=== PATIENT | male | born 1995 | race Hispanic/Latino ===

== ENCOUNTER 2020-02-20 23:44 | Inpatient (IN) | payer SELFPAY ==
[~2020-02-20] VITALS: Ht 175.3 cm; Wt 108.9 kg
[2020-02-21] VITALS (31 sets, daily range): BP systolic 102–153; BP diastolic 56–92
[2020-02-21 00:16] LABS: APPEARANCE,URINE Clear (CLEAR); BILIRUBIN,URINE Negative (NEGATIVE); COLOR,URINE Yellow (YELLOW); GLUCOSE, URINE (UA) 500 mg/dL (NEGATIVE); KETONES,URINE Negative (NEGATIVE); LEUKOCYTE ESTERASE ,URINE Trace (NEGATIVE); NITRATE,URINE Negative (NEGATIVE); OCCULT BLOOD,URINE Moderate (NEGATIVE); PH,URINE 5.5 (5.0-8.0); PROTEIN,URINE Trace mg/dL (NEGATIVE); UROBILINOGEN,URINE 0.2 mg/dL (0.2-1.0)
[2020-02-21 00:25] LABS: BASOPHILS % (AUTO) 0.3 % (0.0-5.0); EOSINOPHILS % (AUTO) 0.1 % (0.0-8.0); HEMATOCRIT 46.4 % (42-54); LYMPHOCYTES % (AUTO) 6.6 % (21.0-51.0); MEAN CORPUSCULAR HEMOGLOBIN 29.3 pg (27.0-33.0); MEAN CORPUSCULAR HGB CONC 34.5 g/dL (32.0-36.0); MEAN CORPUSCULAR VOLUME 84.8 fL (79-99); MONOCYTES % (AUTO) 6.7 % (3.0-13.0); NEUTROPHILS % (AUTO) 85.6 % (40.0-77.0); PLATELET COUNT (AUTO) 305 K/uL (130-400); RED BLOOD CELL COUNT(AUTO) 5.47 MIL/uL (4.50-6.20); WHITE BLOOD COUNT (AUTO) 25.9 K/uL (4.8-10.8)
[2020-02-21 00:26] LABS: BACTERIA,URINE Rare /HPF (None Seen); MUCUS,URINE Rare LPF (None Seen); SQUAMOUS EPITHELIAL CELL,UR 0-2 /HPF (0-2)
[2020-02-21 00:28] LABS: POTASSIUM 3.9 mmol/L (3.5-5.1)
[2020-02-21] MEDS ORDERED: SODIUM CHLORIDE 0.9% 1000ML 1,000 ML IV ONE ×2 (00:38→03:49)
[2020-02-21] MEDS ORDERED: ONDANSETRON HCL 4 MG/2 ML VIAL ONE ×2 (01:17→16:09)
[2020-02-21] MEDS ORDERED: MORPHINE SULFATE 4 MG/1ML SYG ONE ×4 (01:21→13:15)
[2020-02-21] MEDS ORDERED: METOCLOPRAMIDE 10 MG/2 ML VIAL ONE (01:21)
[2020-02-21] MEDS ORDERED: IOHEXOL-350 75 ML VIAL IV ONE (01:51)
[2020-02-21] MEDS ORDERED: ZOSYN 3.375GM+NS 50ML 50 ML IV ONE ×3 (03:49→19:42)
[2020-02-21] MEDS ORDERED: LACTATED RINGERS 1000ML 1,000 ML IV ONE (04:15)
[2020-02-21] MEDS ORDERED: KETOROLAC TROMETHAMINE 30MG/ML ONE ×2 (08:30→15:36)
[2020-02-21 10:31] LABS: AMPHET/METH SCREEN,URINE NEGATIVE (NEGATIVE); BARBITURATE SCREEN, URINE NEGATIVE (NEGATIVE); BENZODIAZEPINES SCREEN,URINE NEGATIVE (NEGATIVE); CANNABINOID SCREEN,URINE NEGATIVE (NEGATIVE); COCAINE SCREEN,URINE NEGATIVE (NEGATIVE); OPIATE SCREEN,URINE NEGATIVE (NEGATIVE); PHENCYCLIDINE SCREEN,URINE NEGATIVE (NEGATIVE)
[2020-02-21] MEDS ORDERED: HYDROMORPHONE 1 MG/1 ML AMP ONE (14:01)
[2020-02-21] MEDS ORDERED: BUPIVACAINE/PF 0.5% 30ML VIAL ONE (15:14)
[2020-02-21] MEDS ORDERED: LIDOCAINE PF 2% 5ML ABBOJECT ONE (16:09)
[2020-02-21] MEDS ORDERED: DEXAMETHASONE SOD PHOSPHATE 10MG/ML 1ML VIAL ONE (16:09)
[2020-02-21] MEDS ORDERED: PROPOFOL 10 MG/ML 20ML VIAL IV ONE ×2 (16:09→16:37)
[2020-02-21] MEDS ORDERED: MIDAZOLAM HCL 1 MG/ML 2ML VIAL ONE (16:09)
[2020-02-21] MEDS ORDERED: FENTANYL CITRATE PF 50 MCG/1 ML 2ML VIAL ONE (16:10)
[2020-02-21] MEDS ORDERED: ROCURONIUM 10MG/1ML SYR 10 MG/ML ML ONE ×2 (16:10→16:37)
[2020-02-21] MEDS ORDERED: SUCCINYLCHOLINE CHLORIDE 20 MG/ML 10 ML VIAL ONE (16:10)
[2020-02-21] MEDS ORDERED: GLYCOPYRROLATE 1 MG/5 ML SYRINGE ONE (17:01)
[2020-02-21] MEDS ORDERED: NEOSTIGMINE 5MG/5ML SYR IV ONE (17:02)
[2020-02-21] MEDS ORDERED: ONDANSETRON HCL 4 MG/2 ML VIAL IVP PRN (17:15)
[2020-02-21] MEDS ORDERED: RACEPINEPHRINE HCL 2.25% 0.5 ML NEB SOLN ONE (17:17)
[2020-02-21] MEDS ORDERED: PHARMACY COMMUNICATION MISC SCH (18:15)
[2020-02-21] MEDS ORDERED: ACETAMINOPHEN 325 MG TAB ONE (18:21)
[2020-02-21] MEDS ORDERED: MEPERIDINE-PF 25 MG/ML SYG ONE (18:48)
--- NOTE | 2020-02-21 19:40 | NUR ---
patient arrived from [facility] with a nonrebreather 10 liters and tachycardia in the 130's. patient's blood pressure is stable and temperature normal. patient has no pain. patient is alert and oriented times 3 and urinating in the urinal. he has a ivonne drain on the right lower abdomen, but secured towards the left lower abdomen. patient starts having pain at midnight. morphine 4mg iv given and patient seems comfortable. will continue to monitor
[2020-02-21] MEDS: ZOSYN 3.375GM+NS 50ML 50 ML IV SCH (21:00)
[2020-02-21] MEDS: D5W-1/2 NS/20MEQ KCL 1,000 ML IV SCH (21:31)
[2020-02-22] VITALS (8 sets, daily range): BP systolic 107–137; BP diastolic 64–86
[2020-02-22] MEDS: MORPHINE SULFATE 4 MG/1ML SYG IV PRN ×2 (00:32→07:58)
[2020-02-22] MEDS: ACETAMINOPHEN 325 MG TAB PO PRN ×2 (01:18→20:07)
[2020-02-22] MEDS: ZOSYN 3.375GM+NS 50ML 50 ML IV SCH ×3 (03:49→19:25)
[2020-02-22 06:39] LABS: HEMATOCRIT 43.3 % (42-54); MEAN CORPUSCULAR HEMOGLOBIN 28.5 pg (27.0-33.0); MEAN CORPUSCULAR HGB CONC 32.1 g/dL (32.0-36.0); MEAN CORPUSCULAR VOLUME 88.9 fL (79-99); RED BLOOD CELL COUNT(AUTO) 4.87 MIL/uL (4.50-6.20); RED CELL DISTRIBUTION WIDTH 12.7 % (11.0-15.5); WHITE BLOOD COUNT (AUTO) 17.7 K/uL (4.8-10.8)
[2020-02-22] MEDS: D5W-1/2 NS/20MEQ KCL 1,000 ML IV SCH ×3 (06:42→20:53)
[2020-02-22 06:48] LABS: POTASSIUM 3.8 mmol/L (3.5-5.1)
--- NOTE | 2020-02-22 07:30 | NUR ---
ASSESSMENT NOTE PT AAOX3 IN BED C/O PAIN TO LOWER ABD 7 OUT OF 10.
--- NOTE | 2020-02-22 08:00 | NUR ---
MORPHINE PT GIVEN MORPHINE FOR PAIN 7 OUT OF 10 TO LOWER ABD. WILL CONTINUE TO MONITOR.
--- NOTE | 2020-02-22 14:30 | NUR ---
PAIN MED PT C/O PAIN TO LOWER ABD 6-10 WILL GIVE 30 MG IVP OF TORADOL.
[2020-02-22] MEDS: KETOROLAC TROMETHAMINE 30MG/ML IV PRN ×2 (14:40→20:39)
--- NOTE | 2020-02-22 16:00 | NUR ---
PAIN MED PT STATES, HE HAD SOME RELIEF WITH TORADOL IT AT 2 OUT 10.
[2020-02-22] MEDS ORDERED: LACTULOSE 20 GM/30 ML UDCUP ONE (18:34)
[2020-02-22] MEDS: LACTULOSE 20 GM/30 ML UDCUP PO SCH (19:25)
--- NOTE | 2020-02-22 20:40 | NUR ---
called doctor manny about patient's fever of 101.3 and 103 at 20:38. i already applied cold packs to the patient and gave acetaminophen 650 mg at 20:00 he ordered a cooling blanket and another acetaminophen 650 mg.
--- NOTE | 2020-02-22 21:00 | NUR ---
called 2nd floor icu, day patient icu, ER, and notified mix house tender about patient's need of a cooling blanket. there are no cooling blankets available. ice packs applied to the patient and patient sent to have a cold shower. temperature dropped to 98.2 degrees farenheit.
[2020-02-22] MEDS ORDERED: ACETAMINOPHEN 325 MG TAB PO ONE (22:00)
[2020-02-23] MEDS: ZOSYN 3.375GM+NS 50ML 50 ML IV SCH ×3 (03:25→20:10)
[2020-02-23] MEDS: KETOROLAC TROMETHAMINE 30MG/ML IV PRN ×3 (03:31→23:31)
[2020-02-23] MEDS: ACETAMINOPHEN 325 MG TAB PO PRN ×2 (04:01→13:48)
[2020-02-23 04:03] VITALS: BP 137/91
[2020-02-23 08:34] VITALS: BP 133/88
--- NOTE | 2020-02-23 08:48 | NUR ---
PAIN MED APPLIANCE SERVICE REPRESENTATIVE GAVE 4 MG OF MORPHINE 0645 AM PT ASK FOR ANOTHER DOSE. I EXPLAINED TO PATIENT IT'S TO SOON FOR MED TO BE GIVEN, MED DUE AT 0945 AM. THEN WANTED TORADOL IT'S ALSO TO SOON FOR MED TO BE GIVEN IT'S Q 6HRS. NEXT DOSE DUE 0930 AM 30 MG.
[2020-02-23 08:50] LABS: HEMATOCRIT 40.8 % (42-54); MEAN CORPUSCULAR HEMOGLOBIN 29.1 pg (27.0-33.0); MEAN CORPUSCULAR HGB CONC 33.1 g/dL (32.0-36.0); MEAN CORPUSCULAR VOLUME 87.9 fL (79-99); PLATELET COUNT (AUTO) 217 K/uL (130-400); RED BLOOD CELL COUNT(AUTO) 4.64 MIL/uL (4.50-6.20); RED CELL DISTRIBUTION WIDTH 12.8 % (11.0-15.5); WHITE BLOOD COUNT (AUTO) 15.1 K/uL (4.8-10.8)
[2020-02-23 09:14] LABS: POTASSIUM 3.8 mmol/L (3.5-5.1)
[2020-02-23] MEDS: LACTULOSE 20 GM/30 ML UDCUP PO SCH ×3 (09:16→20:18)
[2020-02-23 09:37] LABS: BASOPHILS % (MANUAL) 1 % (0-2); LYMPHOCYTES % (MANUAL) 8 % (22-44); MAN.DIFF COMMENT-IMPRESSION MANUAL DIFFERENTIAL; MONOCYTES % (MANUAL) 9 % (2-9); PLATELET MORPHOLOGY COMMENT ADEQUATE; SEGMENTED NEUTROPHILS % 82 % (40-70)
[2020-02-23 11:54] VITALS: BP 124/72
[2020-02-23] MEDS: D5W-1/2 NS/20MEQ KCL 1,000 ML IV SCH ×4 (13:57→23:06)
[2020-02-23 15:58] VITALS: BP 126/75
--- NOTE | 2020-02-23 16:25 | NUR ---
DCP IA done by Olu Ribeiro RN. As per Olu spoke to pt's father on facesheet [employer] . Pt is independent prior to admission, lives at home w/girlfriend. Denies any equipments/services. Feels safe to go back home, still drives and works, girlfriend and father able to assist with transportation and needs. CM to continue to follow up. Dc plan to home once stable. Pt is a selfpay, [facility] assisting, given [employer] resources packet. Addendum: 02/23/20 at 1627 by CLARENCE HARRIS LVN Amended: Links added.
[2020-02-23 19:37] VITALS: BP 138/73
--- NOTE | 2020-02-23 20:20 | NUR ---
MEDS SHIFT ASSESSMENT DONE, PLEASE REFER TO CHART. DUE MEDS ADMINISTERED, TOLERATED WELL. PT REQUESTED TO WALK OUTSIDE THE ROOM. ALLOWED PT TO AMBULATE IN THE HALLWAY WEARING A MASK. PT TOLERATED ACTIVITY WELL. Addendum: 02/23/20 at 2251 by JG MAURER RN RN Amended: Links added.
--- NOTE | 2020-02-23 23:30 | NUR ---
PAIN PT WAS ALREADY MOVED TO ROOM 316. THERMOSTAT IN PREVIOUS ROOM 317 IS NOT WORKING AND ROOM IS TOO COLD. WORK ORDER PLACED FOR ROOM 317 TO BE FIXED BY CAMPUS AMBASSADOR. PT CLAIMS OF HEADACHE.REQUESTED COLD COMPRESS TO FOREHEAD, PROVIDED. MEDICATED WITH TORADOL IV. KEPT COMFORTABLE IN BED WITH HOB ELEVATED. WILL RE-ASSESS PT. Addendum: 02/23/20 at 2350 by JG MAURER RN RN Amended: Links added.
[2020-02-23 23:44] VITALS: BP 131/93
--- NOTE | 2020-02-24 01:55 | NUR ---
ROUNDS PT RESTING WELL, FAIRLY ASLEEP. NO DISTRESS NOTED. KEPT UNDISTURBED FOR NOW. CALL LIGHT WITHIN REACH. WILL MONITOR PT.
[2020-02-24 03:59] VITALS: BP 131/87
[2020-02-24] MEDS: D5W-1/2 NS/20MEQ KCL 1,000 ML IV SCH ×3 (04:04→12:53)
[2020-02-24] MEDS: ZOSYN 3.375GM+NS 50ML 50 ML IV SCH ×3 (04:32→20:45)
--- NOTE | 2020-02-24 04:37 | NUR ---
MEDS PAYROLL CLERK AWAKENED PT TO DRAW BLOOD. PT DENIES ANY CONCERNS AT THIS TIME. DUE MEDS HUNG. KEPT RESTED AND COMFORTABLE. FOR MORE CARE.
[2020-02-24 04:39] LABS: BASOPHILS % (AUTO) 0.3 % (0.0-5.0); EOSINOPHILS % (AUTO) 1.5 % (0.0-8.0); HEMATOCRIT 38.4 % (42-54); LYMPHOCYTES % (AUTO) 15.8 % (21.0-51.0); MEAN CORPUSCULAR HEMOGLOBIN 28.3 pg (27.0-33.0); MEAN CORPUSCULAR HGB CONC 32.3 g/dL (32.0-36.0); MEAN CORPUSCULAR VOLUME 87.7 fL (79-99); MONOCYTES % (AUTO) 9.1 % (3.0-13.0); NEUTROPHILS % (AUTO) 72.6 % (40.0-77.0); PLATELET COUNT (AUTO) 248 K/uL (130-400); RED BLOOD CELL COUNT(AUTO) 4.38 MIL/uL (4.50-6.20); RED CELL DISTRIBUTION WIDTH 12.6 % (11.0-15.5); WHITE BLOOD COUNT (AUTO) 11.3 K/uL (4.8-10.8)
[2020-02-24 07:30] VITALS: BP 144/91
--- NOTE | 2020-02-24 08:00 | NUR ---
SITTING IN CHAIR, NO C/O. DENIES PAIN TO SURGICAL SITE.HAS BEEN TOLERATING HEART HEALTHY DIET WELL.
[2020-02-24] MEDS: LACTULOSE 20 GM/30 ML UDCUP PO SCH ×2 (09:00→17:45)
--- NOTE | 2020-02-24 10:30 | NUR ---
SM. SURG. WOUND CLEANED, CLOSED, [address], BAND AID APPLIED.
[2020-02-24 11:00] VITALS: BP 125/75
--- NOTE | 2020-02-24 11:17 | NUR ---
ANSWERED A CALL FROM A VERY UPSET (ANGRY) MOTHER TELLING ME TO SEND HER SON HOME, THAT WE HAD BEEN DELAYING HIS STAY HERE AND THAT IT WAS ACTUALLY OUR FAULT HIS STAY WAS DELAYED DUE TO THE FACT HE HAD TO WAIT 16 HRS. BEFORE HE WAS SEEN BY THE SURGEON.
--- NOTE | 2020-02-24 12:30 | NUR ---
OJ HARRIS IN TO SEE PT. ALSO SPOKE TO PTS MOM. EXPLAINED WHY IT WAS STILL NECESSARY FOR PT TO REMAIN IN HOSP. FOR ABX. THERAPY.
--- NOTE | 2020-02-24 15:25 | NUR ---
NEW IV START, LEFT HAND 22G. ZOSYN INFUSING NOW.
[2020-02-24 16:00] VITALS: BP 127/80
[2020-02-24 20:20] VITALS: BP 134/77
--- NOTE | 2020-02-24 20:45 | NUR ---
MEDS SHIFT ASSESSMENT DONE, PLEASE REFER TO CHART. DUE MEDS ADMINISTERED, TOLERATED WELL. CALL LIGHT WITHIN REACH. WILL MONITOR PT. Addendum: 02/24/20 at 2320 by JG MAURER RN RN Amended: Links added.
[2020-02-25 00:24] VITALS: BP 123/80
--- NOTE | 2020-02-25 02:00 | NUR ---
ROUNDS PT RESTING WELL, FAIRLY ASLEEP. NO DISTRESS NOTED. KEPT RESTED AND COMFORTABLE. CALL LIGHT WITHIN REACH. WILL CONTINUE TO MONITOR.
[2020-02-25 04:24] VITALS: BP 129/86
[2020-02-25] MEDS: ZOSYN 3.375GM+NS 50ML 50 ML IV SCH ×2 (04:30→13:39)
[2020-02-25] MEDS: KETOROLAC TROMETHAMINE 30MG/ML IV PRN (04:35)
--- NOTE | 2020-02-25 04:35 | NUR ---
PAIN PT CLAIMS OF PAINS ON HIS BACK AND ABDOMEN. MEDICATED WITH TORADOL IV. DUE ZOSYN DOSE HUNG. KEPT RESTED AND COMFORTABLE. WILL RE-ASSESS PT.
[2020-02-25] MEDS: LACTULOSE 20 GM/30 ML UDCUP PO SCH (08:27)
[2020-02-25 08:47] LABS: MEAN CORPUSCULAR HGB CONC 33.3 g/dL (32.0-36.0); MEAN CORPUSCULAR VOLUME 87.1 fL (79-99); PLATELET COUNT (AUTO) 290 K/uL (130-400); RED BLOOD CELL COUNT(AUTO) 4.59 MIL/uL (4.50-6.20); RED CELL DISTRIBUTION WIDTH 12.5 % (11.0-15.5); WHITE BLOOD COUNT (AUTO) 10.4 K/uL (4.8-10.8)
[2020-02-25 08:53] VITALS: BP 110/68
[2020-02-25 09:39] LABS: BASOPHILS % (MANUAL) 1 % (0-2); EOSINOPHILS % (MANUAL) 4 % (1-6); LYMPHOCYTES % (MANUAL) 28 % (22-44)
[2020-02-25 09:40] LABS: MAN.DIFF COMMENT-IMPRESSION MANUAL DIFFERENTIAL; MONOCYTES % (MANUAL) 4 % (2-9); PLATELET MORPHOLOGY COMMENT ADEQUATE; REACTIVE LYMPHOCYTES 2 % (0-0); SEGMENTED NEUTROPHILS % 61 % (40-70)
--- NOTE | 2020-02-25 10:27 | NUR ---
WALKING IN HALLWAY, NO C/O OF PAIN, BASIA REMAINS IN PLACE TO LT LOWER QUAD. NO DRAINAGE . ABD SOFT AND HAS BEEN HAVING BOWEL MOVEMENTS.
[2020-02-25 13:58] VITALS: BP 122/82
[2020-02-25] MEDS ORDERED: AMOX-429 PO (16:06)
--- NOTE | 2020-02-25 16:45 | NUR ---
DISCHARGED NOW USING TEACH BACK. RX. FOR AUGMENTIN 875MG GIVEN. WILL CALL FOR [address] VIGIL ON THURSDAY V/S STABLE, AFEBRILE, SALINE LOCK REMOVED, INTACT BASIA ALSO REMOVED, NO SECRETIONS IN BAS[place].INST TO RETURN TO ER IF ANY PROBLEMS CAME UP OVER THE WEEK END
== END 2020-02-25 17:00 | disposition home or self-care (01) | DRG 340 ==
LOC: EDH 23:44 → EDHIP 23:45 → 3CH 02-21 17:21
PROVIDERS: ADMIT Surgery; ATTEND Surgery
PROC: 0DTJ4ZZ Resection of Appendix, Percutaneous Endoscopic Approach (ICD-10-PCS; principal; 2020-02-21 16:35)
DX: K35.32 Acute appendicitis with perforation, localized peritonitis, and gangrene, without abscess (principal); K56.41 Fecal impaction; Z20.828 Contact with and (suspected) exposure to other viral communicable diseases
CPT/HCPCS: 36415; 74177; 80048; 80305; 81001; 83605; 83690; 85025; 85027; 87070; 87076; 87077; 87186; 87426; 94640; A4344; G0378; J0330; J1100; J1170; J1885; J2001; J2175; J2250; J2270; J2405; J2543; J2704; J2710; J2765; J3010; J3480; J3490; J7030; J7120; Q9967; U0003